=== PATIENT | male | born 1955 | race Caucasian/White ===

== ENCOUNTER 2019-07-06 20:57 | Emergency (ER) | payer OTHER ==
[2019-07-06] MEDS ORDERED: Albuterol/Ipratropium 3.0-0.5 MG/3 ML Neb Soln NEB ONE (21:01)
[2019-07-06] MEDS ORDERED: methylPREDNISolone Sodium Succinate 125 MG/2 ML SDV IM ONE (21:04)
--- NOTE | 2019-07-06 21:11 | EDM.PDOC ---
ED HPI GENERAL MEDICAL PROBLEM - General Chief Complaint: Respiratory Problem Stated Complaint: SOB Time Seen by Provider: 07/06/19 21:10 Source of Information: Reports: Patient - History of Present Illness INITIAL COMMENTS - FREE TEXT/NARRATIVE: HISTORY AND PHYSICAL: History of present illness: []Patient presents with asthma exacerbation hypoxic on arrival shortness of breath symptoms since 5 PM he has been using his inhaler without He was provided for DuoNeb and Solu-Medrol which improved symptoms O2 sats in the low 90s on room air after this treatment however with ambulation he was 89% on room air with recheck Patient was offered observation admission for continued nebs and IV steroid however he refused, or performing lab having difficulty drawing the patient, he is known to be difficult to draw labs or IV sources and became frustrated with this process refuses further lab as we have a hemolyzed specimen He desires to leave these in no distress he is not upset with osseous prefers not to be admitted I've offered oral steroids for him which I can provide to Stefano lópez recommended that he stays out of work tomorrow to avoid pollen and other exacerbating factors for his asthma, strongly encouraged to return if symptoms persist or worsen despite this treatment Current is in no distress wheezes resolved O2 sats are low 90s Review of systems: As per history of present illness and below otherwise all systems reviewed and negative. Past medical history: As per history of present illness and as reviewed below otherwise noncontributory. Surgical history: As per history of present illness and as reviewed below otherwise noncontributory. Social history: No reported history of drug or alcohol abuse. Family history: As per history of present illness and as reviewed below otherwise noncontributory. Physical exam: HEENT: Atraumatic, normocephalic, pupils reactive, negative for conjunctival pallor or scleral icterus, mucous membranes moist, throat clear, neck supple, nontender, trachea midline. Lungs: Clear to auscultation, breath sounds equal bilaterally, chest nontender. Post DuoNeb and Solu-Medrol Heart: S1S2, regular, negative for clicks, rubs, or JVD. Abdomen: Soft, nondistended, nontender. Negative for masses or hepatosplenomegaly. Negative for costovertebral tenderness. Pelvis: Stable nontender. Genitourinary: Deferred. Rectal: Deferred. Extremities: Atraumatic, negative for cords or calf pain. Neurovascular unremarkable. Neuro: Awake, alert, oriented. Cranial nerves II through XII unremarkable. Cerebellum unremarkable. Motor and sensory unremarkable throughout. Exam nonfocal. Diagnostics: [cBC CMP UA blood cultures ]Chest 2 views Therapeutics: [DuoNeb Solu-Medrol 125 mg] Impression: [Hypoxia Asthma] Definitive disposition and diagnosis as appropriate pending reevaluation and review of above. - Related Data Allergies Allergy/AdvReac Type Severity Reaction Status Date / Time No Known Allergies Allergy Verified 07/06/19 21:01 Home Meds: Home Meds Albuterol [Proventil Neb Soln] 07/06/19 [History] Budesonide/Formoterol Fumarate [Symbicort 80-4.5 Mcg Inhaler] 1 puff IH [History] High Cholesterol Medication 07/06/19 [History] Lisinopril 0 mg PO 07/06/19 [History] ED ROS GENERAL - Review of Systems Review Of Systems: See Below ED EXAM, GENERAL - Physical Exam Exam: See Below Course - Vital Signs Last Recorded V/S: Last Vital Signs Temp 98.0 F 07/06/19 21:09 Pulse 105 H 07/06/19 21:09 Resp 28 H 07/06/19 21:09 BP 158/100 H 07/06/19 21:09 Pulse Ox 80 L 07/06/19 21:09 - Orders/Labs/Meds Orders: Active Orders 24 hr Category Date Time Status EKG Documentation Completion [RC] STAT Care 07/06/19 21:17 Active RT Aerosol Therapy [RC] ASDIRECTED Care 07/06/19 21:01 Active CBC WITH AUTO DIFF [HEME] Stat Lab 07/06/19 21:09 Ordered CULTURE BLOOD [BC] Stat Lab 07/06/19 21:55 Results CULTURE BLOOD [BC] Stat Lab 07/06/19 22:24 Results UA RFX MARJORIE AND CULT IF INDIC [URIN] Stat Lab 07/06/19 22:15 Received Blood Culture x2 Reflex Set [OM.PC] Stat Oth 07/06/19 21:09 Ordered Labs: Laboratory Tests 07/06/19 Range/Units 21:55 Sodium 142 (136-148) mmol/L Potassium 4.3 (3.5-5.1) mmol/L Chloride 103 (98-107) mmol/L Carbon Dioxide 30.3 (21.0-32.0) mmol/L BUN 11 (7.0-18.0) mg/dL Creatinine 0.7 L (0.8-1.3) mg/dL Est Cr Clr Drug Dosing 123.65 mL/min Estimated GFR (MDRD) > 60.0 ml/min Glucose 95 (74-106) mg/dL Calcium 9.7 (8.5-10.1) mg/dL Total Bilirubin 0.4 (0.2-1.0) mg/dL AST 37 (15-37) IU/L ALT 53 (14-63) IU/L Alkaline Phosphatase 96 (46-116) U/L Total Protein 7.2 (6.4-8.2) g/dL Albumin 4.0 (3.4-5.0) g/dL Globulin 3.2 (2.6-4.0) g/dL Albumin/Globulin Ratio 1.3 (0.9-1.6) Meds: Medications Discontinued Medications Generic Name Dose Route Start Last Admin Trade Name Freq PRN Reason Stop Dose Admin Albuterol/Ipratropium 3 ml 07/06/19 21:01 07/06/19 21:29 Duoneb 3.0-0.5 Mg/3 Ml NEB 07/06/19 21:02 3 ml ONETIME ONE Administration Methylprednisolone Sodium Succinate 125 mg 07/06/19 21:04 07/06/19 21:28 Solu-Medrol IM 07/06/19 21:05 125 mg ONETIME ONE Administration Departure - Departure Time of Disposition: 22:38 Disposition: Home, Self-Care 01 Condition: Fair Clinical Impression: Asthma exacerbation - Discharge Information Forms: ED Department Discharge Additional Instructions: Medication as prescribed Work note for 24 hours provided Return if symptoms persist or worsen or if new concerning symptoms develop The following information is given to patients seen in the emergency department who are being discharged to home. This information is to outline your options for follow-up care. We provide all patients seen in our emergency department with a follow-up referral. The need for follow-up, as well as the timing and circumstances, are variable depending upon the specifics of your emergency department visit. If you don't have a primary care physician on staff, we will provide you with a referral. We always advise you to contact your personal physician following an emergency department visit to inform them of the circumstance of the visit and for follow-up with them and/or the need for any referrals to a consulting specialist. The emergency department will also refer you to a specialist when appropriate. This referral assures that you have the opportunity for follow-up care with a specialist. All of these measure are taken in an effort to provide you with optimal care, which includes your follow-up. Under all circumstances we always encourage you to contact your private physician who remains a resource for coordinating your care. When calling for follow-up care, please make the office aware that this follow-up is from your recent emergency room visit. If for any reason you are refused follow-up, please contact the [facility] emergency department at and asked to speak to the emergency department charge nurse. - My Orders Last 24 Hours: My Active Orders 07/06/19 21:01 RT Aerosol Therapy [RC] ASDIRECTED 07/06/19 21:09 CBC WITH AUTO DIFF [HEME] Stat Blood Culture x2 Reflex Set [OM.PC] Stat 07/06/19 21:17 EKG Documentation Completion [RC] STAT 07/06/19 21:55 CULTURE BLOOD [BC] Stat 07/06/19 22:15 UA RFX MARJORIE AND CULT IF INDIC [URIN] Stat 07/06/19 22:24 CULTURE BLOOD [BC] Stat - Assessment/Plan Last 24 Hours: My Active Orders 07/06/19 21:01 RT Aerosol Therapy [RC] ASDIRECTED 07/06/19 21:09 CBC WITH AUTO DIFF [HEME] Stat Blood Culture x2 Reflex Set [OM.PC] Stat 07/06/19 21:17 EKG Documentation Completion [RC] STAT 07/06/19 21:55 CULTURE BLOOD [BC] Stat 07/06/19 22:15 UA RFX MARJORIE AND CULT IF INDIC [URIN] Stat 07/06/19 22:24 CULTURE BLOOD [BC] Stat
--- NOTE | 2019-07-06 22:15 | CR ---
INDICATION: Pain TECHNIQUE: Chest 1 view. COMPARISON: None FINDINGS: Cardiovascular and mediastinum: Heart size and vasculature are normal in caliber and appearance. Probable large hiatal hernia. Lungs and pleural space: Lungs are clear. No sign of infiltrate or mass. No sign of pleural effusion. No pneumothorax. Bones and soft tissues: No significant findings. IMPRESSION: No acute pulmonary or cardiac abnormalities. Probable large hiatal hernia. Dictated by Andrew Remy MD @ Jul 06 2019 10:08PM Signed by Dr. Andrew Remy @ Jul 06 2019 10:12PM
[2019-07-06 22:28] LABS: BLOOD UREA NITROGEN,BUN 11 mg/dL (7.0-18.0); CARBON DIOXIDE,CO2 30.3 mmol/L (21.0-32.0); CHLORIDE,CL 103 mmol/L (98-107); GLUCOSE RANDOM 95 mg/dL (74-106); POTASSIUM,K 4.3 mmol/L (3.5-5.1); SODIUM,NA 142 mmol/L (136-148)
== END 2019-07-06 22:55 | disposition home or self-care (01) ==
LOC: MW.ED 20:57
DX: J45.901 Unspecified asthma with (acute) exacerbation (principal); R09.02 Hypoxemia; Z79.899 Other long term (current) drug therapy
CPT/HCPCS: 36415; 71045; 80053; 81001; 87040; 93005; 94640; 96372; 99285; J2930; J7620-GY